=== PATIENT | male | born 1975 | race Caucasian/White ===

== ENCOUNTER 2023-01-07 14:19 | Emergency (ER) | payer OTHER ==
[2023-01-07] MEDS ORDERED: SODIUM CHLORIDE 0.9% 1,000 ML IV STA (14:41)
[2023-01-07] MEDS ORDERED: PANTOPRAZOLE 40 MG/10 ML VIAL IVP STA (14:41)
--- NOTE | 2023-01-07 14:46 | ED ---
Abdominal Pain HPI - General Chief Complaint: Abdominal Pain Stated Complaint: Abd Pain Time Seen by Provider: 01/07/23 14:33 Source: patient, RN notes reviewed, old records reviewed Mode of arrival: ambulatory Limitations: no limitations - History of Present Illness Initial Comments: This is a nontoxic-appearing 47-year-old male that presents to the emergency room with complaints of epigastric abdominal pain. Patient states that he drinks 2 fifths of tequila a day and has been doing this for 6 months. Last drink was this morning before going to [facility]. States he is also using heroin IV which he last used this morning at 1 AM. Patient states that he also has a history of gastric ulcers and was told years ago he needed to quit drinking. He states does not take any medicine on a daily basis. MD Complaint: abdominal pain -: days(s) Location: epigastric Radiation: none Severity scale (1-10): 5 Context: other (alcohol abuse, history of ulcers) - Related Data Previous Rx's Medication Instructions Recorded Famotidine [Pepcid] 20 mg PO DAILY #28 tablet 01/07/23 Allergies Allergy/AdvReac Type Severity Reaction Status Date / Time No Known Allergies Allergy Verified 01/07/23 15:22 Review of Systems ROS Statement: Those systems with pertinent positive or pertinent negative responses have been documented in the HPI. ROS Other: All systems not noted in ROS Statement are negative. Past Medical History Additional Past Medical History / Comment(s): high cholestrol History of Any Multi-Drug Resistant Organisms: None Reported Past Surgical History: Orthopedic Surgery Past Psychological History: No Psychological Hx Reported Smoking Status: Current every day smoker Past Alcohol Use History: Abuse, Daily, Heavy Past Drug Use History: Cocaine, Heroin, IV Drug Use, Methamphetamine, Opiates General Exam Limitations: no limitations General appearance: alert, in no apparent distress Head exam: Present: atraumatic Eye exam: Absent: scleral icterus, conjunctival injection, periorbital swelling ENT exam: Present: mucous membranes moist Neck exam: Present: full ROM. Absent: tenderness, meningismus Respiratory exam: Present: normal lung sounds bilaterally. Absent: respiratory distress, accessory muscle use Cardiovascular Exam: Present: regular rate GI/Abdominal exam: Present: soft, tenderness (epigastric). Absent: guarding, rebound, rigid Extremities exam: Present: normal capillary refill. Absent: pedal edema Back exam: Absent: tenderness Neurological exam: Present: alert, oriented X3, CN II-XII intact, normal gait Psychiatric exam: Present: normal affect, normal mood Skin exam: Present: warm, dry, normal color, other (Injection sites from heroir use left forearm without erythema or swelling or drainage). Absent: cyanosis, diaphoretic, petechiae, pallor Course Vital Signs 01/07/23 01/07/23 14:27 17:43 Temperature 97.5 F L 97.6 F Pulse Rate 92 83 Respiratory 20 16 Rate Blood Pressure 153/99 150/98 O2 Sat by Pulse 98 99 Oximetry Medical Decision Making - Medical Decision Making On physical exam abdomen is soft and nontender. Denies any testicular pain and swelling or penile discharge. Denies any fevers. Patient was given IV fluids and Protonix and states relief of his discomfort. Patient was given something to eat without any difficulties. EKG shows sinus rhythm with a ventricular rate of 76, WI interval 0.124, QRS 0.98, QTc 0.481 Labs shows no evidence of leukocytosis. AST 462, ALT 405, alk phos 283 alcohol 0, troponin negative at 0.012 KUB x-ray interpreted by me shows no evidence of free air. Radiologist impression nonspecific nonobstructive bowel gas pattern no evidence of free air. Patient's symptoms are likely associated with alcoholic gastritis. States he has had similar pain in the past and told likely gastric ulcer. Patient comfortable being discharged back to [facility] for continuation of care. Follow up with GI. Prescription for Pepcid was provided. Case discussed with Dr. Beck Was pt. sent in by a medical professional or institution (, PA, SLIDE FASTENER CHAIN ASSEMBLER, urgent care, hospital, or fci...) When possible be specific @ -[facility] Did you speak to anyone other than the patient for history (EMS, parent, family, police, friend...)? What history was obtained from this source @ -No Did you review nursing and triage notes (agree or disagree)? Why? @ -I reviewed and agree with nursing and triage notes Were old charts reviewed (outside hosp., previous admission, EMS record, old EKG, old radiological studies, urgent care reports/EKG's, fci records)? Report findings @ -No old charts were reviewed Differential Diagnosis (chest pain, altered mental status, abdominal pain women, abdominal pain men, vaginal bleeding, weakness, fever, dyspnea, syncope, headache, dizziness, GI bleed, back pain, seizure, CVA, palpatations, mental health, musculoskeletal)? @ -Differential Abdominal Pain Men: Appendicitis, cholecystitis, diverticulosis, ischemic bowel, pancreatitis, hepatitis, UTI, gastroenteritis, AAA, incarcerated hernia, bowel obstruction, constipation, inflammatory bowel, hepatitis, peptic ulcer disease, splenic infarction, perforated viscus, testicular torsion, this is not meant to be an all-inclusive list EKG interpreted by me (3pts min.). @ -As above X-rays interpreted by me (1pt min.). @ -Yes as above CT interpreted by me (1pt min.). @ -None done U/S interpreted by me (1pt. min.). @ -None done What testing was considered but not performed or refused? (CT, X-rays, U/S, labs)? Why? @ -None What meds were considered but not given or refused? Why? @ -Ativan was considered for withdrawal, patient declined at this time. Did you discuss the management of the patient with other professionals (professionals i.e. , PA, SLIDE FASTENER CHAIN ASSEMBLER, lab, RT, psych nurse, social sciences research scientist, wastewater analyst lab analyst, teacher, police or patrol park officer, case finishing machine adjuster)? Give summary @ -No Was smoking cessation discussed for >3mins.? @ -No Was critical care preformed (if so, how long)? @ -No Were there social determinants of health that impacted care today? How? (Homele ssness, low income, unemployed, alcoholism, drug addiction, transportation, low edu. Level, literacy, decrease access to med. care, correction, rehab)? @ -Alcohol and drug addiction Was there de-escalation of care discussed even if they declined (Discuss DNR or withdrawal of care, Hospice)? DNR status @ -No What co-morbidities impacted this encounter? (DM, HTN, Smoking, COPD, CAD, Cancer, CVA, ARF, Chemo, Hep., AIDS, mental health diagnosis, sleep apnea, morbid obesity)? @ -Alcohol or drug addiction Was patient admitted / discharged? Hospital course, mention meds given and route, prescriptions, significant lab abnormalities, going to OR and other pertinent info. @ -Discharged Undiagnosed new problem with uncertain prognosis? @ -No Drug Therapy requiring intensive monitoring for toxicity (Heparin, Nitro, Insulin, Cardizem)? @ -No Were any procedures done? @ -No Diagnosis/symptom? @ -Alcoholic gastritis, polysubstance abuse, alcohol abuse Acute, or Chronic, or Acute on Chronic? @ -Acute on chronic Uncomplicated (without systemic symptoms) or Complicated (systemic symptoms)? @ -Uncomplicated Side effects of treatment? @ -No Exacerbation, Progression, or Severe Exacerbation? @ -No Poses a threat to life or bodily function? How? (Chest pain, [place], [place], pneumonia, PE, COPD, DKA, ARF, appy, cholecystitis, CVA, Diverticulitis, Homicidal, Suicidal, threat to staff... and all critical care pts) @ -No - Lab Data Result diagrams: 01/07/23 15:11 01/07/23 15:11 Lab Results 01/07/23 01/07/23 01/07/23 Range/Units 15:11 15:11 15:11 WBC 5.2 (3.8-10.6) k/uL RBC 4.59 (4.30-5.90) m/uL Hgb 15.1 (13.0-17.5) gm/dL Hct 43.7 (39.0-53.0) % MCV 95.1 (80.0-100.0) fL MCH 32.9 (25.0-35.0) pg MCHC 34.6 (31.0-37.0) g/dL RDW 13.0 (11.5-15.5) % Plt Count 214 (150-450) k/uL MPV 7.3 Neutrophils % (Manual) 44 % Lymphocytes % (Manual) 47 % Monocytes % (Manual) 9 % Neutrophils # (Manual) 2.29 (1.3-7.7) k/uL Lymphocytes # (Manual) 2.44 (1.0-4.8) k/uL Monocytes # (Manual) 0.47 (0-1.0) k/uL Nucleated RBCs 0 (0-0) /100 WBC Manual Slide Review Performed Sodium 136 L (137-145) mmol/L Potassium 3.9 (3.5-5.1) mmol/L Chloride 96 L (98-107) mmol/L Carbon Dioxide 32 H (22-30) mmol/L Anion Gap 8 mmol/L BUN 11 (9-20) mg/dL Creatinine 0.50 L (0.66-1.25) mg/dL Est GFR (CKD-EPI)AfAm >90 (>60 ml/min/1.73 sqM) Est GFR (CKD-EPI)NonAf >90 (>60 ml/min/1.73 sqM) Glucose 128 H (74-99) mg/dL Plasma Lactic Acid Ced 1.2 (0.7-2.0) mmol/L Calcium 9.1 (8.4-10.2) mg/dL Magnesium (1.6-2.3) mg/dL Total Bilirubin 1.3 (0.2-1.3) mg/dL AST 462 H (17-59) U/L ALT 405 H (4-49) U/L Alkaline Phosphatase 283 H (38-126) U/L Troponin I (0.000-0.034) ng/mL Total Protein 8.3 H (6.3-8.2) g/dL Albumin 4.4 (3.5-5.0) g/dL Amylase 63 (30-110) U/L Lipase 25 (23-300) U/L Serum Alcohol <10 mg/dL 01/07/23 01/07/23 Range/Units 15:11 15:11 WBC (3.8-10.6) k/uL RBC (4.30-5.90) m/uL Hgb (13.0-17.5) gm/dL Hct (39.0-53.0) % MCV (80.0-100.0) fL MCH (25.0-35.0) pg MCHC (31.0-37.0) g/dL RDW (11.5-15.5) % Plt Count (150-450) k/uL MPV Neutrophils % (Manual) % Lymphocytes % (Manual) % Monocytes % (Manual) % Neutrophils # (Manual) (1.3-7.7) k/uL Lymphocytes # (Manual) (1.0-4.8) k/uL Monocytes # (Manual) (0-1.0) k/uL Nucleated RBCs (0-0) /100 WBC Manual Slide Review Sodium (137-145) mmol/L Potassium (3.5-5.1) mmol/L Chloride (98-107) mmol/L Carbon Dioxide (22-30) mmol/L Anion Gap mmol/L BUN (9-20) mg/dL Creatinine (0.66-1.25) mg/dL Est GFR (CKD-EPI)AfAm (>60 ml/min/1.73 sqM) Est GFR (CKD-EPI)NonAf (>60 ml/min/1.73 sqM) Glucose (74-99) mg/dL Plasma Lactic Acid Ced (0.7-2.0) mmol/L Calcium (8.4-10.2) mg/dL Magnesium 2.2 (1.6-2.3) mg/dL Total Bilirubin (0.2-1.3) mg/dL AST (17-59) U/L ALT (4-49) U/L Alkaline Phosphatase (38-126) U/L Troponin I <0.012 (0.000-0.034) ng/mL Total Protein (6.3-8.2) g/dL Albumin (3.5-5.0) g/dL Amylase (30-110) U/L Lipase (23-300) U/L Serum Alcohol mg/dL Disposition Clinical Impression: Acute abdomen, Polysubstance abuse, Alcohol abuse Disposition: HOME SELF-CARE Condition: Good Instructions (If sedation given, give patient instructions): Gastritis (ED), Abuse of Alcohol (ED), Acute Abdominal Pain (ED), Polysubstance Abuse (ED) Additional Instructions: Return to [facility] for continuation of care regarding your alcoholism and polysubstance abuse. Take the Pepcid once a day. Return to the emergency room with any new or concerning symptoms. Prescriptions: Famotidine [Pepcid] 20 mg PO DAILY #28 tablet Is patient prescribed a controlled substance at d/c from ED?: No Referrals: Nonstaff,Physician [REFERRING] - 1-2 days Binta Gomez MD [STAFF PHYSICIAN] - 1-2 days Time of Disposition: 16:45
--- NOTE | 2023-01-07 15:17 | XR ---
EXAMINATION TYPE: XR KUB DATE OF EXAM: 01/07/2023 Comparison: None Clinical History: 47-year-old male abdominal pain, history of bleeding ulcer, free air Findings: Lung bases are clear. No evidence for free intraperitoneal air. Some gassy mid to lower abdominal bowel is present. No dilated small bowel or differential air-fluid levels. Scattered minimal to mild stool. No suspicious calcifications. Impression: Nonspecific, nonobstructive bowel gas pattern. No evidence for free air.
[2023-01-07 15:55] LABS: ALT 405 U/L (4-49); African American GFR (CKD) >90 (>60 ml/min/1.73 sqM); Albumin 4.4 g/dL (3.5-5.0); Alcohol <10 mg/dL; Amylase 63 U/L (30-110); Anion Gap 8 mmol/L; Blood Urea Nitrogen 11 mg/dL (9-20); Calcium 9.1 mg/dL (8.4-10.2); Carbon Dioxide 32 mmol/L (22-30); Chloride 96 mmol/L (98-107); Glucose 128 mg/dL (74-99); Lipase 25 U/L (23-300); Non-African American GFR(CKD) >90 (>60 ml/min/1.73 sqM); Sodium 136 mmol/L (137-145); Total Bilirubin 1.3 mg/dL (0.2-1.3); Total Protein 8.3 g/dL (6.3-8.2)
[2023-01-07 16:11] LABS: HCT 43.7 % (39.0-53.0); HGB 15.1 gm/dL (13.0-17.5); MCH 32.9 pg (25.0-35.0); MCHC 34.6 g/dL (31.0-37.0); MCV 95.1 fL (80.0-100.0); Mean Platelet Volume 7.3; Platelet Count 214 k/uL (150-450); RBC 4.59 m/uL (4.30-5.90); WBC 5.2 k/uL (3.8-10.6)
[2023-01-07 16:23] LABS: AST 462 U/L (17-59); Alkaline Phosphatase 283 U/L (38-126); Potassium 3.9 mmol/L (3.5-5.1)
[2023-01-07 16:39] LABS: Lymphocytes # (M) 2.44 k/uL (1.0-4.8); Monocytes # (M) 0.47 k/uL (0-1.0); Neutrophils # (M) 2.29 k/uL (1.3-7.7); Neutrophils % (M) 44 %; Nucleated Red Blood Cells 0 /100 WBC (0-0); Total Cells Counted 100
[2023-01-07 17:45] VITALS: BP 150/98; PULSE 83; RESP 16; TEMP 97.6
== END 2023-01-07 17:45 | disposition home or self-care (01) ==
LOC: EC 14:19
DX: F10.10 Alcohol abuse, uncomplicated (principal); F19.10 Other psychoactive substance abuse, uncomplicated; R10.0 Acute abdomen; F17.200 Nicotine dependence, unspecified, uncomplicated; F14.90 Cocaine use, unspecified, uncomplicated; F11.90 Opioid use, unspecified, uncomplicated; F15.90 Other stimulant use, unspecified, uncomplicated; Y90.0 Blood alcohol level of less than 20 mg/100 ml
CPT/HCPCS: 99284 ×2; 96374 ×2; 96361 ×2; 36415; 93005; 80053; 82150; 83605; 83690; 83735; 84484; 85025; 74018; G0480; C9113; 80320

== ENCOUNTER 2024-10-30 15:03 | Emergency (ER) | payer OTHER ==
[2024-10-30 15:33] VITALS: RESP 18
--- NOTE | 2024-10-30 15:58 | XR ---
EXAMINATION TYPE: XR hand complete 3 views LT DATE OF EXAM: 10/30/2024 3:49 PM COMPARISON: None CLINICAL INDICATION: Male, 48 years old with pain after history of Injury, , FINDINGS: There is an oblique fracture of the distal shaft of the fifth metacarpal with palmar angulation. Mode rate degenerative change first CMC joint. No additional acute fracture, subluxation, dislocation is s een. IMPRESSION: Oblique fracture distal shaft fifth metacarpal with palmar angulation. Moderate degenerative change f irst CMC joint. [facility], Workstation: [facility], 10/30/2024 3:55 PM
[2024-10-30] MEDS: ACETAMINOPHEN TAB 500 MG TAB PO STA (16:18)
--- NOTE | 2024-10-30 16:18 | ED ---
Upper Extremity HPI - General Chief Complaint: Extremity Injury, Upper Stated Complaint: left hand swollen Time Seen by Provider: 10/30/24 15:37 Source: patient, RN notes reviewed Mode of arrival: ambulatory Limitations: no limitations - History of Present Illness Initial Comments: This is a 48-year-old male who presents to the emergency department for a left hand injury. States that he punched a table 5 days ago and continues to have pain below the pinky finger is having difficulty fully closing the hand there. He is currently at [facility] and was sent here for imaging. They have been giving him ibuprofen and Tylenol, but states that it is not very helpful. MD Complaint: Injury to:: left, hand - Related Data Previous Rx's Medication Instructions Recorded Famotidine [Pepcid] 20 mg PO DAILY #28 tablet 01/07/23 Allergies Allergy/AdvReac Type Severity Reaction Status Date / Time No Known Allergies Allergy Verified 10/30/24 15:33 Review of Systems ROS Statement: Those systems with pertinent positive or pertinent negative responses have been documented in the HPI. ROS Other: All systems not noted in ROS Statement are negative. Past Medical History Additional Past Medical History / Comment(s): high cholestrol History of Any Multi-Drug Resistant Organisms: None Reported Past Surgical History: Orthopedic Surgery Past Psychological History: No Psychological Hx Reported Smoking Status: Current every day smoker Past Alcohol Use History: Abuse, Daily, Heavy Past Drug Use History: Cocaine, Heroin, IV Drug Use, Methamphetamine, Opiates General Exam Limitations: no limitations General appearance: alert, in no apparent distress Head exam: Present: atraumatic, normocephalic, normal inspection Respiratory exam: Present: normal lung sounds bilaterally. Absent: respiratory distress, wheezes, rales, rhonchi, stridor Cardiovascular Exam: Present: regular rate, normal rhythm, normal heart sounds. Absent: systolic murmur, diastolic murmur, rubs, gallop, clicks Extremities exam: Present: other (Swelling and tenderness over the left fifth metacarpal. Range of motion limited by pain. 2+ radial pulses) Neurological exam: Present: alert, oriented X3, CN II-XII intact Psychiatric exam: Present: normal affect, normal mood Course Vital Signs 10/30/24 10/30/24 15:29 16:50 Temperature 97.8 F 98.1 F Pulse Rate 85 82 Respiratory 18 18 Rate Blood Pressure 177/91 168/70 O2 Sat by Pulse 97 97 Oximetry Procedures - Orthopedic Splinting/Casting Injury #1 Side: left Upper Extremity Injury Location: hand Upper Extremity Immobilizer: ulnar gutter, fiberglass cast Medical Decision Making - Medical Decision Making This is a 48-year-old male who presents to the emergency department for a left hand injury. Was pt. sent in by a medical professional or institution? @ -[facility] Did you speak to anyone other than the patient for history? @ -No Did you review nursing and triage notes? @ -Yes, and I agree, it is accurate with regards to the patient's symptoms. Were old charts reviewed? @ -No Differential Diagnosis? @ -Differential Musculoskeletal Muscular strain, contusion, ligament sprain, fracture, arthritis, septic arthritis, bursitis, cellulitis, muscle spasm, nerve compression, DVT, arterial occlusion, herpes zoster, electrolyte abnormality, tumor.... This is not meant to be in all inclusive list EKG interpreted by me (3pts min.)? @ -Not obtained X-rays interpreted by me (1pt min.)? @ -X-ray of the left hand obtained. My interpretation identifies a fifth metacarpal fracture. CT interpreted by me (1pt min.)? @ -Not obtained U/S interpreted by me (1pt. min.)? @ -Not obtained What testing was considered but not performed? (CT, X-rays, U/S, labs)? Why? @ -None What meds were considered but not given? Why? @ -None Did you discuss the management of the patient with other professionals? @ -No Did you reconcile home meds? @ -No Was smoking cessation discussed for >3mins.? @ -No Was critical care preformed (if so, how long)? @ -No Were there social determinants of health that impacted care today? How? (Homelessness, low income, unemployed, alcoholism, drug addiction, transpo rtation, low edu. Level, literacy, decrease access to med. care, care home, rehab)? @ -Rehab, who sent the patient in. This does also limit his pain control options. Was there de-escalation of care discussed even if they declined? (Discuss DNR or withdrawal of care, Hospice)? @ -No What co-morbidities impacted this encounter? (DM, HTN, Smoking, COPD, CAD, Cancer, CVA, Hep., AIDS, mental health diagnosis, sleep apnea, morbid obesity)? @ -Drug addiction Was patient admitted / discharged? @ -Discharged. X-ray of the left hand obtained revealing an oblique fracture of the distal shaft fifth metacarpal with palmar angulation. Toradol and Tylenol administered. His hand was put in an ulnar gutter splint. Information for orthopedic follow-up was provided. Because he is at [facility] he is only able to take ibuprofen and Tylenol as needed for pain relief. Patient discharged back to [facility] in stable condition. Case discussed with ED attending Dr. Marino. Return precautions reviewed in depth, the patient is instructed to return to the emergency department with any new, worsening, or concerning symptoms. Patient verbalized understanding. Undiagnosed new problem with uncertain prognosis? @ -None Drug Therapy requiring intensive monitoring for toxicity (Heparin, Nitro, Insulin, Cardizem)? @ -None Were any procedures done? @ -Left ulnar gutter splint application Diagnosis/symptom? @ -Left fifth metacarpal shaft fracture Acute, or Chronic, or Acute on Chronic? @ -Acute Uncomplicated (without systemic symptoms) or Complicated (systemic symptoms)? @ -Uncomplicated Side effects of treatment? @ -None Exacerbation, Progression, or Severe Exacerbation] @ -Not applicable Poses a threat to life or bodily function? @ -Will limit his use of the left hand for the meantime. - Radiology Data Radiology results: report reviewed, image reviewed Disposition Clinical Impression: Fracture of fifth metacarpal bone of left hand Disposition: HOME SELF-CARE Instructions (If sedation given, give patient instructions): Hand Fracture (ED), Splint Care (ED), Boxer Fracture (ED) Additional Instructions: Return to the emergency department with any new, worsening, or concerning symptoms. Alternate with ibuprofen and Tylenol as needed for pain relief. Follow-up with orthopedics. Is patient prescribed a controlled substance at d/c from ED?: No Referrals: None,Stated [Primary Care Provider] - 1-2 days Og Hester DO [Doctor of Osteopathic Medicine] - 1-2 days Time of Disposition: 16:34
[2024-10-30] MEDS: KETOROLAC 15 MG/ML 1 ML VIAL IM STA (16:19)
[2024-10-30] MEDS: MORPHINE SULFATE 4 MG/ML SYRINGE IM STA (16:44)
[2024-10-30 16:54] VITALS: BP 168/70; PULSE 82; TEMP 98.1
== END 2024-10-30 16:51 | disposition home or self-care (01) ==
LOC: EC 15:03
DX: S62.307A Unspecified fracture of fifth metacarpal bone, left hand, initial encounter for closed fracture (principal); F17.200 Nicotine dependence, unspecified, uncomplicated; W50.0XXA Accidental hit or strike by another person, initial encounter
CPT/HCPCS: 73130; 99283; 96372; 29125; J2270; J1885